=== PATIENT | male | born 1945 | race Caucasian/White ===

== ENCOUNTER 2018-03-16 12:13 | Observation (INO) | payer OTHER ==
[~2018-03-16] VITALS: Ht 167.6 cm; Wt 85.9 kg
[~2018-03-16 12:13] MED LIST: AUGMENTIN875 MG PO; LISINOPRIL40 MG PO; METOPROLOL SUC100 MG PO; MOTRIN600 MG PO; SIMVASTATIN20 MG PO
[2018-03-16 12:31] LABS: HEMATOCRIT 40.1 % (38.0-50.0); MCHC 34.9 G/DL (30.0-36.0); MCV 88.9 FL (86-99); PLATELET COUNT 175 K/uL (156-360); RBC DIS.WIDTH-CV 12.8 % (11.8-14.6); RBC DIS.WIDTH-SD 41.6 % (39-53); RED BLOOD COUNT 4.51 M/uL (4.00-5.50); WHITE BLOOD COUNT 6.2 K/uL (4.1-10.2)
[2018-03-16 12:36] LABS: INTER. NORMALIZED RATIO 1.1
[2018-03-16 12:38] LABS: ALBUMIN 4.2 g/dL (3.2-4.8)
[2018-03-16 12:39] LABS: CHLORIDE 107 mEq/L (99-109); POTASSIUM 4.1 mEq/L (3.7-5.4); SODIUM 140 mEq/L (136-147)
[2018-03-16 12:41] LABS: GLUCOSE 209 mg/dL (70-99); TOTAL PROTEIN 6.9 g/dL (6.4-8.3)
[2018-03-16 12:43] LABS: TOTAL BILIRUBIN 1.3 mg/dL (0.0-1.0)
[2018-03-16 12:44] LABS: ALKALINE PHOSPHATASE 67 IU/L (3-129)
[2018-03-16 12:45] LABS: CREATININE 0.8 mg/dL (0.6-1.3); GFR ESTIMATE (CALCULATED) > 59 mL/min/ (58.99-99999)
[2018-03-16 12:46] LABS: AST (GOT) 16 IU/L (2-34); UREA NITROGEN (BUN) 19 mg/dL (9-23)
[2018-03-16 12:48] LABS: ALT (GPT) 20 IU/L (3-49); CREATINE KINASE 44 IU/L (1-294); TOTAL CK 44 IU/L (1-294)
[2018-03-16 12:51] LABS: TROP-I INTERPRETATION NEGATIVE; TROPONIN-I 0.01 ng/mL (0.0-0.30)
[2018-03-16 12:53] LABS: CK-MB 1.6 ng/mL (0.0-4.9); CKMB RELATIVE INDEX 3.6 (0.0-3.9)
[2018-03-16] MEDS ORDERED: HYDROXYCHLOROQ200 MG PO (15:10)
[2018-03-16] MEDS ORDERED: CIALIS5 MG PO (15:11)
[2018-03-16] MEDS ORDERED: LO-DOSE ASPIRIN81 M1 PO (15:11)
[2018-03-16] MEDS ORDERED: AMLODIPINE BES2.5 MG PO (15:11)
[2018-03-16 15:12] LABS: HDL CHOLESTEROL 54 MG/DL (Desirable>=40); LDL CHOLESTEROL 65 mg/dL (Desirable<100); NON-HDL CHOLESTEROL 90 mg/dL (Desirable<160); TOTAL CHOLESTEROL 144 mg/dL (Desirable<200); TRIGLYCERIDES 125 MG/DL (Normal: <150)
[2018-03-16 15:35] VITALS: BP 123/78
[2018-03-16 19:25] LABS: TROP-I INTERPRETATION NEGATIVE; TROPONIN-I 0.02 ng/mL (0.0-0.30)
[2018-03-16 20:40] VITALS: BP 150/79
[2018-03-16 23:48] VITALS: BP 111/63
[2018-03-17 00:53] LABS: TROP-I INTERPRETATION NEGATIVE; TROPONIN-I 0.02 ng/mL (0.0-0.30)
[2018-03-17 04:25] VITALS: BP 124/77
[2018-03-17 05:40] LABS: HEMATOCRIT 38.7 % (38.0-50.0); HEMOGLOBIN 12.9 G/DL (12.5-16.6); MCH 29.8 PG (29.0-34.0); MCHC 33.3 G/DL (30.0-36.0); MCV 89.4 FL (86-99); PLATELET COUNT 169 K/uL (156-360); RBC DIS.WIDTH-CV 12.8 % (11.8-14.6); RBC DIS.WIDTH-SD 42.4 % (39-53); RED BLOOD COUNT 4.33 M/uL (4.00-5.50); WHITE BLOOD COUNT 5.9 K/uL (4.1-10.2)
[2018-03-17 06:42] LABS: CHLORIDE 108 MEQ/L (99-109); CREATININE 0.8 MG/DL (0.6-1.3); GFR ESTIMATE (CALCULATED) > 59 mL/min/ (58.99-99999); SODIUM 142 MEQ/L (136-147); UREA NITROGEN (BUN) 16 mg/dL (9-23)
[2018-03-17 06:47] LABS: GLUCOSE 112 mg/dL (70-99)
[2018-03-17 08:21] VITALS: BP 127/72
[2018-03-17] MEDS ORDERED: PRAVASTATIN SOD40 MG PO (10:40)
[2018-03-17] MEDS ORDERED: METFORMIN HCL500 M4 PO (10:43)
[2018-03-17] MEDS ORDERED: NORVASC5 MG PO (11:54)
[2018-03-17] MEDS ORDERED: METOPROLOL SUC100 MG PO (11:54)
[2018-03-18] MEDS ORDERED: PLAQUENIL200 MG PO (11:24)
[2018-03-18 14:29] LABS: HEMOGLOBIN A1c (GLYCOHEMOGLOB) 5.5 % (Below 5.7)
== END 2018-03-17 12:17 | disposition home or self-care (01) ==
LOC: EME 12:13 → 4SOUTH 13:40 → EDOF 13:40 → ENRESERV 13:53 → 4SOUTH 15:07
PROVIDERS: Emergency Medicine; Hospitalist; Nurse Practitioner Adult Health
PROC: B246ZZZ Ultrasonography of Right and Left Heart (ICD-10-PCS; principal; 2018-03-17)
DX: R07.9 Chest pain, unspecified (principal); R61 Generalized hyperhidrosis; R11.0 Nausea; I10 Essential (primary) hypertension; E78.5 Hyperlipidemia, unspecified; R73.01 Impaired fasting glucose; M19.90 Unspecified osteoarthritis, unspecified site; Z79.84 Long term (current) use of oral hypoglycemic drugs; Z79.82 Long term (current) use of aspirin; Z87.891 Personal history of nicotine dependence; I35.0 Nonrheumatic aortic (valve) stenosis
CPT/HCPCS: 71046; 80048; 80053; 80061; 82550; 82553; 83036; 84484; 85027; 85610; 93005; 93306; 99281; 99285; G0378

== ENCOUNTER 2018-03-18 10:55 | Day surgery (SDC) | payer OTHER ==
[~2018-03-18] VITALS: Ht 167.6 cm; Wt 81.6 kg
[~2018-03-18 10:55] MED LIST changes: +AMLODIPINE BES2.5 MG PO; +CIALIS5 MG PO; +HYDROXYCHLOROQ200 MG PO; +LO-DOSE ASPIRIN81 M1 PO; +METFORMIN HCL500 M4 PO; +NORVASC5 MG PO; +PRAVASTATIN SOD40 MG PO
[2018-03-18] MEDS ORDERED: PLAQUENIL200 MG PO (11:24)
[2018-03-18 17:11] VITALS: BP 138/79
[2018-03-18 19:20] VITALS: BP 133/81
[2018-03-19] VITALS: BP 144/77
[2018-03-19 05:10] VITALS: BP 127/68
[2018-03-19 05:29] LABS: BASOPHIL (%) 0.4 % (0-1); EOSINOPHIL (%) 1.4 % (0-5); EOSINOPHIL COUNT 0.1 K/uL (0-0.3); HEMATOCRIT 41.8 % (38.0-50.0); IMMATURE GRANULOCYTE (%) 0.3 % (0.0-0.7); LYMPHOCYTE (%) 19.2 % (15-42); LYMPHOCYTE COUNT 1.4 K/uL (1.0-2.8); MCH 29.5 PG (29.0-34.0); MCHC 33.5 G/DL (30.0-36.0); MCV 88.2 FL (86-99); MONOCYTE (%) 8.8 % (3-12); MONOCYTE COUNT 0.6 K/uL (0-0.8); NEUTROPHIL (%) 69.9 % (45-76); NEUTROPHIL COUNT 4.9 K/uL (1.8-6.4); PLATELET COUNT 170 K/uL (156-360); RBC DIS.WIDTH-CV 12.6 % (11.8-14.6); RBC DIS.WIDTH-SD 40.8 % (39-53); RED BLOOD COUNT 4.74 M/uL (4.00-5.50); WHITE BLOOD COUNT 7.1 K/uL (4.1-10.2)
[2018-03-19 05:56] LABS: CHLORIDE 109 MEQ/L (99-109); CREATININE 0.7 MG/DL (0.6-1.3); GFR ESTIMATE (CALCULATED) > 59 mL/min/ (58.99-99999); GLUCOSE 123 mg/dL (70-99); SODIUM 143 MEQ/L (136-147); UREA NITROGEN (BUN) 14 mg/dL (9-23)
[2018-03-19 07:09] VITALS: BP 153/91
[2018-03-19 11:27] VITALS: BP 138/86
[2018-03-19] MEDS ORDERED: NITROSTAT0.4 MG SL (11:45)
[2018-03-19] MEDS ORDERED: BRILINTA90 MG PO (11:45)
[2018-03-19] MEDS ORDERED: ATORVASTATIN CA40 MG PO (11:45)
== END 2018-03-19 13:15 | disposition home or self-care (01) ==
LOC: CATH 10:55 → ENRESERV 14:32 → 2SOUTH 14:36 → ENRESERV 14:47 → 4EAST 17:07
PROVIDERS: Internal Medicine Cardiovascular Disease
DX: I25.110 Atherosclerotic heart disease of native coronary artery with unstable angina pectoris (principal); I10 Essential (primary) hypertension; E11.9 Type 2 diabetes mellitus without complications; Z87.891 Personal history of nicotine dependence; E78.5 Hyperlipidemia, unspecified; Z88.2 Allergy status to sulfonamides
CPT/HCPCS: 78451; 80048; 85025; 85347; 93005; 93017; A9500; C1725; C1769; C1874; C1887; G0378; J0583; J1200; J1644; J2250; J2785; J3010; J7050

== ENCOUNTER 2018-03-28 08:29 | Day surgery (SDC) | payer OTHER ==
[~2018-03-28 08:29] MED LIST changes: +ATORVASTATIN CA40 MG PO; +BRILINTA90 MG PO; +NITROSTAT0.4 MG SL; +PLAQUENIL200 MG PO
[2018-03-28 17:09] VITALS: BP 171/87
[2018-03-28 19:53] VITALS: BP 149/63
[2018-03-29] VITALS: BP 110/61
[2018-03-29 04:50] VITALS: BP 119/63
[2018-03-29 05:41] LABS: BASOPHIL (%) 0.8 % (0-1); BASOPHIL COUNT 0.1 K/uL (0-0.1); EOSINOPHIL (%) 1.4 % (0-5); EOSINOPHIL COUNT 0.1 K/uL (0-0.3); HEMATOCRIT 37.8 % (38.0-50.0); IMMATURE GRANULOCYTE (%) 0.1 % (0.0-0.7); LYMPHOCYTE (%) 14.2 % (15-42); LYMPHOCYTE COUNT 1.1 K/uL (1.0-2.8); MCH 30.3 PG (29.0-34.0); MCHC 34.4 G/DL (30.0-36.0); MCV 88.1 FL (86-99); MONOCYTE (%) 9.8 % (3-12); MONOCYTE COUNT 0.8 K/uL (0-0.8); NEUTROPHIL (%) 73.7 % (45-76); NEUTROPHIL COUNT 5.8 K/uL (1.8-6.4); PLATELET COUNT 189 K/uL (156-360); RBC DIS.WIDTH-CV 12.4 % (11.8-14.6); RBC DIS.WIDTH-SD 39.4 % (39-53); RED BLOOD COUNT 4.29 M/uL (4.00-5.50); WHITE BLOOD COUNT 7.8 K/uL (4.1-10.2)
[2018-03-29 05:53] LABS: CHLORIDE 106 MEQ/L (99-109); CREATININE 0.7 MG/DL (0.6-1.3); GFR ESTIMATE (CALCULATED) > 59 mL/min/ (58.99-99999); GLUCOSE 105 mg/dL (70-99); POTASSIUM 3.9 MEQ/L (3.7-5.4); SODIUM 139 MEQ/L (136-147); UREA NITROGEN (BUN) 19 mg/dL (9-23)
[2018-03-29 07:40] VITALS: BP 130/74
== END 2018-03-29 12:11 | disposition home or self-care (01) ==
LOC: CATH 08:29 → 4EAST 14:20 → 2SOUTH 14:20 → ENRESERV 15:12 → 4EAST 16:57
PROVIDERS: Internal Medicine Cardiovascular Disease
DX: I25.110 Atherosclerotic heart disease of native coronary artery with unstable angina pectoris (principal); I10 Essential (primary) hypertension; E11.9 Type 2 diabetes mellitus without complications; E78.5 Hyperlipidemia, unspecified; Z88.2 Allergy status to sulfonamides; Z95.5 Presence of coronary angioplasty implant and graft; R01.1 Cardiac murmur, unspecified; Z79.82 Long term (current) use of aspirin; Z87.891 Personal history of nicotine dependence
CPT/HCPCS: 80048; 82948; 85025; 85347; 93005; C1725; C1760; C1769; C1887; C1894; G0378; J0360; J0583; J0690; J1200; J1644; J2250; J2405; J3010; J7030